=== PATIENT | male | born 1985 | race Caucasian/White ===

== ENCOUNTER 2023-02-11 21:57 | Emergency (ER) | payer MEDICAID ==
[~2023-02-11] VITALS: Ht 175.3 cm; Wt 57.8 kg
[2023-02-11 22:26] VITALS: BP 145/86
[2023-02-11] MEDS ORDERED: ondansetron 4mg rapidly disintigrating tab PO ONE (23:30)
[2023-02-11] MEDS ORDERED: LORazepam 2 mg/ml vial IM ONE (23:30)
[2023-02-11] MEDS ORDERED: ketorolac trometh. 30mg/ml inj. IM ONE (23:30)
[2023-02-11] MEDS ORDERED: LORA-269 PO (23:39)
[2023-02-11] MEDS ORDERED: ONDA4TAB12 PO (23:39)
== END 2023-02-11 23:51 | disposition home or self-care (01) ==
LOC: ER 21:58
DX: T63.311A Toxic effect of venom of black widow spider, accidental (unintentional), initial encounter (principal); Y92.89 Other specified places as the place of occurrence of the external cause
CPT/HCPCS: 96372; 99284; J1885; J2060

== ENCOUNTER 2023-09-13 10:40 | Emergency (ER) | payer MEDICAID ==
[~2023-09-13] VITALS: Ht 175.3 cm; Wt 62.6 kg
[~2023-09-13 10:40] MED LIST: LORA-269 PO; ONDA4TAB12 PO
[2023-09-13 10:43] VITALS: BP 132/85; PULSE 64; RESP 16; TEMP 97.7; O2SAT 100
[2023-09-13] MEDS ORDERED: LIDOcaine 1% W/epiNEPHrine 1:100,000 20ml vial SQ ONE (11:05)
[2023-09-13] MEDS ORDERED: LIDOCAINE 1%/EPI 1:100,000 inj. 10 ML multi-dose vial SQ ONE (11:10)
[2023-09-13] MEDS ORDERED: CEPH500C2 PO (11:40)
[2023-09-13] MEDS ORDERED: IBUP-1985 PO (11:40)
--- NOTE | 2023-09-13 18:32 | NUR ---
i agree with the assessment per Lou Caicedo LVN
== END 2023-09-13 11:50 | disposition home or self-care (01) ==
LOC: ER 10:41
DX: S60.551A Superficial foreign body of right hand, initial encounter (principal); X58.XXXA Exposure to other specified factors, initial encounter; Y93.89 Activity, other specified; Y92.89 Other specified places as the place of occurrence of the external cause; Y99.8 Other external cause status; Z79.899 Other long term (current) drug therapy
CPT/HCPCS: 99284; A6258; A6449